=== PATIENT | female | born 1950 | race Asian ===

== ENCOUNTER 2023-03-21 15:24 | Emergency (ER) | payer OTHER ==
[~2023-03-21] VITALS: Ht 157.5 cm; Wt 60.2 kg
[2023-03-21 17:33] LABS: BASO % 0.4 % (0.0-1.0); EOS # 0.1 10^3/uL (0.0-0.5); EOS % 1.4 % (0.0-3.0); HEMATOCRIT 33.6 % (36.0-47.0); HEMOGLOBIN 10.4 g/dl (12.0-15.5); LYMPH # 3.3 10^3/uL (1.5-5.0); LYMPH % 36.3 % (24.0-44.0); MEAN CORPUSCULAR HEMOGLOBIN 25.9 pg (27.0-33.0); MEAN CORPUSCULAR VOLUME 83.8 fl (80.0-96.0); MONO # 0.9 10^3/uL (0.0-0.8); NEUTROPHILS # 4.7 10^3/uL (1.5-8.5); NEUTROPHILS % 51.6 % (36.0-66.0); PLATELET COUNT, AUTOMATED 329 10^3/uL (150-450); RED BLOOD COUNT 4.01 10^6/uL (4.00-5.40); WHITE BLOOD COUNT 9.2 10^3/uL (4.0-10.0)
[2023-03-21 17:54] LABS: CPK CREATINE PHOSPHOKINASE 79 U/L (34-145)
[2023-03-21 17:55] LABS: CK-MB VALUE MASS < 1.0 NG/ML (<3.6)
[2023-03-21 17:56] LABS: CK-MB VALUE MASS < 1.0 NG/ML (<3.6); MB/CK RELATIVE INDEX 1.26 (< OR =4)
[2023-03-21 17:56] LABS: CPK CREATINE PHOSPHOKINASE 74 U/L (34-145); MB/CK RELATIVE INDEX 1.35 (< OR =4)
[2023-03-21 17:57] LABS: BLOOD UREA NITROGEN 12 MG/DL (9-23); CALCIUM LEVEL 8.8 MG/DL (8.3-10.6); CARBON DIOXIDE LEVEL 23 MMOL/L (20-31); CHLORIDE LEVEL 106 MMOL/L (98-107); GLOMERULAR FILTRATION RATE 58.2 (>39); GLUCOSE, FASTING 246 MG/DL (74-106); POTASSIUM SERUM 4.4 MMOL/L (3.5-5.1); SODIUM LEVEL 138 MMOL/L (136-145)
[2023-03-21 18:02] LABS: INR 1.04; PROTHROMBIN TIME 13.8 SECONDS (12.5-14.5)
[2023-03-21 18:05] LABS: D-DIMER QUANT 815.51 ng/ml (<500)
[2023-03-21] MEDS ORDERED: ACETAMINOPHEN 325 MG TAB PO ONE (19:45)
[2023-03-21 19:46] LABS: LIPASE 71 U/L (12-53)
[2023-03-21 19:48] LABS: ALBUMIN 3.8 G/DL (3.2-5.2); ALKALINE PHOSPHATASE 53 U/L (46-116); ALT/SGPT 30 U/L (7.0-40); AST/SGOT 27 U/L (<34); BILIRUBIN,DIRECT 0.2 MG/DL (<0.4); BILIRUBIN,TOTAL 0.4 MG/DL (0.3-1.2); TOTAL PROTEIN 7.4 G/DL (5.7-8.2)
[2023-03-21 19:50] LABS: FREE T4 1.28 NG/DL (0.89-1.76)
[2023-03-21 19:51] LABS: THYROID STIMULATING HORMONE 0.941 uIU/ML (0.55-4.78)
[2023-03-21 19:54] LABS: CK-MB VALUE MASS < 1.0 NG/ML (<3.6)
[2023-03-21] MEDS ORDERED: ISOVUE-370 76% 100ML VIAL As Ordered ONE (19:54)
[2023-03-21 19:57] LABS: CPK CREATINE PHOSPHOKINASE 89 U/L (34-145); MB/CK RELATIVE INDEX 1.12 (< OR =4)
[2023-03-21 22:37] VITALS: BP 163/66; O2SAT 100
[2023-03-21 22:43] VITALS: TEMP 97.1
== END 2023-03-21 22:46 | disposition home or self-care (01) ==
LOC: M ED 15:24
DX: I31.39 Other pericardial effusion (noninflammatory) (principal); E11.9 Type 2 diabetes mellitus without complications; I10 Essential (primary) hypertension; K21.9 Gastro-esophageal reflux disease without esophagitis; E03.9 Hypothyroidism, unspecified
CPT/HCPCS: 71045; 71275; 80048; 80076; 82550; 82553; 83690; 84439; 84443; 84484; 85025; 85379; 85610; 85730; 93005; 93041; 93971; 94760; 99285; Q9967